=== PATIENT | female | born 1995 | race Hispanic/Latino ===

== ENCOUNTER 2024-10-12 13:26 | Emergency (ER) | payer SELFPAY ==
[~2024-10-12] VITALS: Ht 147.3 cm; Wt 77.1 kg
--- NOTE | 2024-10-12 13:38 | ERN ---
ED Note History of Present Illness Stated Complaint: COUGH Chief Complaint: Cough Time Seen by MD: 13:30 Dictation: PATIENT IS A 29-YEAR-OLD FEMALE HERE WITH COMPLAINTS OF HAVING FLU-LIKE SYMPTOMS TO INCLUDE FEVER CHILLS COUGH WITH GREEN-YELLOW PHLEGM, BODY ACHES AND SINUS CONGESTION FOR THE LAST TWO DAYS. STATES SHE HAS A MILD SORE THROAT WITH PAINFUL SWALLOWING. NO LOSS OF TASTE OR SMELL NO NAUSEA VOMITING NO DIARRHEA NO PRIMARY CARE DOCTOR. SHE HAS BEEN USING [id number]-ENP-FLCREZI NASAL SPRAYS FOR SINUS CONGESTION AT NIGHT. Allergies: Coded Allergies: No Known Drug Allergies (Unverified Allergy, Unknown, 10/12/24) Home Meds Active Scripts Benzonatate (Tessalon Perles) 100 Mg Cap, 200 MG PO TID for cough, #60 CAP 0 Refills Two capsules by mouth every 8 hours as needed for cough. Prov:THEA DEE NP 10/12/24 Azithromycin (Zithromax Tri-Joey) 500 Mg Tablet, 500 MG PO DAILY for 5 Days, #5 TAB Prov:THEA DEE NP 10/12/24 Past Medical History Past Medical History: No Pertinent History Surgical History: RN Note Reviewed/Agreed w/PFSH: Yes Review of System Dictation CONSTITUTIONAL: NEGATIVE EXCEPT FOR HPI FEVER CHILLS HEAD/FACE: NEGATIVE EXCEPT FOR HPI EENT: NEGATIVE EXCEPT FOR HPI CLEAR RHINITIS WITH PAINFUL SWALLOWING AND THROAT PAIN RESPIRATORY: NEGATIVE EXCEPT FOR HPI PRODUCTIVE COUGH YELLOW-GREEN PHLEGM GASTROINTESTINAL/ABDOMINAL: NEGATIVE EXCEPT FOR HPI GENITOURINARY: NEGATIVE EXCEPT FOR HPI MUSCULOSKELETAL: NEGATIVE EXCEPT FOR HPI INTEGUMENTARY: NEGATIVE EXCEPT FOR HPI NEUROLOGICAL/PSYCH: NEGATIVE EXCEPT FOR HPI HEMATOLOGIC/LYMPHATIC: NEGATIVE EXCEPT FOR HPI ALL SYSTEMS NEGATIVE, EXCEPT NOTED ABOVE. 13 POINT REVIEW OF SYSTEMS ASSESSED AND ALL NEGATIVE EXCEPT FOR ABOVE. Initial Vital Sign VS Vital Signs Date Time Temp Pulse Resp B/P (MAP) Pulse Ox O2 Delivery O2 Flow Rate FiO2 10/12/24 13:29 98.2 90 16 114/72 96 Room Air 0 10/12/24 13:32 21 Physical Exam Dictation VITAL SIGNS REVIEWED GENERAL APPEARANCE: ALERT, ORIENTED X 3, MILD ACUTE DISTRESS, WELL DEVELOPED, NOURISHED. HEAD AND FACE: NON-TRAUMATIC. EYES: PERRL, PINK CONJUNCTIVAS, EYELID NO TRAUMA, ANTERIOR CHAMBER WITH ARCUS SENILIS. EARS: PINNAS INTACT AND NO SIGNS OF TRAUMA OR ERYTHEMA EAR CANALS CLEAR AND NO DISCHARGE TM NO ERYTHEMA NOSE: CLEAR DISCHARGE, NO BLEEDING. OROPHARYNX: MOUTH NORMAL, TONGUE PINK, PHARYNX CLEAR, MILD PHARYNGEAL ERYTHEMA, TONSILS NO EXUDATES, NO ABSCESSES NOTED, MUCOUS MEMBRANE MOIST UVULA MIDLINE, VOICE IS CLEAR NECK: SUPPLE, NON-TENDER, NO THYROMEGALY, NO MASSES, NO JVD, NO BRUITS BREAST:DEFERRED CHEST:NO TENDERNESS, NO CREPITUS, NO PARADOXICAL MOVEMENT, NO RETRACTIONS LUNGS:CLEAR, WELL-VENTILATED, SYMMETRIC, NO RALES, NO WHEEZING, NO RHONCHI, NO STRIDOR, GOOD BREATH SOUNDS BILATERALLY HEART: REGULAR RATE, REGULAR RHYTHM, NO MURMUR, NO GALLOPS VASCULAR: NO PERIPHERAL EDEMA, ABDOMEN: SOFT, POSITIVE BOWEL SOUNDS, NONDISTENDED, NO GUARDING, NONTENDER, NO REBOUND, NO MASSES NO HEPATOMEGALY, NO SPLENOMEGALY, NO MADRIGAL'S SIGN, NO HERNIAS. RECTAL: DEFERRED GENITAL: DEFERRED NEUROLOGICAL: NORMAL SPEECH, MOTOR FUNCTION INTACT, SENSORY FUNCTION INTACT MUSCULOSKELETAL: NECK NONTENDER, FULL RANGE OF MOTION, BACK NONTENDER, FULL RANGE OF MOTION, EXTREMITIES: NONTENDER, FULL RANGE OF MOTION SKIN: COLOR PINK, DRY, NO TURGOR, NO RASH, NO LACERATIONS, NO ABRASIONS, NO CONTUSIONS. LYMPHATIC: DEFERRED Results (Laboratory/Radiology) Laboratory/Radiology Laboratory Tests Test 10/12/24 14:05 10/12/24 14:25 Influenza Type A Antigen Negative For Type A Influenza Type B Antigen Negative For Type B SARS-CoV-2 Antigen (Rapid) PRESUMPTIVE NEGATIVE Group A Streptococcus Rapid negative (NEGATIVE) Labs Reviewed?: Yes ED Course ED Course Orders Procedure Category Date Status Time Covid19 (Sars Antigen LAB 10/12/24 Complete Rapid) 13:35 Influenza Type A & B, LAB 10/12/24 Complete Rapid 13:35 Acetaminophen 500mg PHA 10/12/24 Complete Tab (Tylenol 500mg T 14:00 Rapid (Group A Strep) LAB 10/12/24 Complete 14:20 Current Medications Medications (Trade) Dose Ordered Sig/Giselle Route PRN Reason Start Time Stop Time Status Last Admin Dose Admin Acetaminophen (TYLenol 500MG TAB) 1,000 mg ONCE ONCE PO 10/12/24 14:00 10/12/24 14:01 DC 10/12/24 14:12 Vital Signs Date Time Temp Pulse Resp B/P (MAP) Pulse Ox O2 Delivery O2 Flow Rate FiO2 10/12/24 15:34 98.2 84 16 119/74 96 Room Air* 0 21 10/12/24 13:32 98.2 90 16 114/72 96 Room Air* 0 21 10/12/24 13:29 98.2 90 16 114/72 96 Room Air 0 1530/SWABS ARE NEGATIVE FOR FLU COVID AND STREP. PATIENT WILL BE TREATED FOR ACUTE VIRAL URI WITH COUGH. WE WILL BE PRESCRIBED AZITHROMYCIN AND TESSALON TOLD SEE HER PRIMARY CARE DOCTOR FOR FOLLOW UP AND GIVEN A LIST OF DOCTORS ON STAFF Medical Decision Making MDM MEDICAL DECISION-MAKING BASED ON SWABS FOR FLU COVID AND STREP. ALL SWABS NEGATIVE PATIENT WILL BE TREATED FOR ACUTE VIRAL SYNDROME WITH COUGH SHE WILL BE PRESCRIBED TESSALON AND AZITHROMYCIN PROVIDED A LIST OF THE LOCAL PRIMARY CARE DOCTORS. DX & DISP Disposition: Discharge Departure Impression: Primary Impression: Viral URI with cough Additional Impression: Malaise Condition: Stable Scripts Albuterol Sulfate (Ventolin Hfa/Proventil Hfa/Proair Hfa) 90 Mcg Puff 2 PUFF IH Q4H for WHEEZING, #1 INHALER 0 Refills Prov: THEA DEE NP 10/12/24 Benzonatate (Tessalon Perles) 100 Mg Cap 200 MG PO TID for cough, #60 CAP 0 Refills Two capsules by mouth every 8 hours as needed for cough. Prov: THEA DEE NP 10/12/24 Azithromycin (Zithromax Tri-Joey) 500 Mg Tablet 500 MG PO DAILY for 5 Days, #5 TAB Prov: THEA DEE NP 10/12/24 Additional Instructions: Follow-up with primary care provider in 1 to 2 days. Take medications as directed here in the emergency room. Okay to continue home medications unless otherwise discussed during your visit in the emergency room today. Return to your nearest emergency room if symptoms worsen or if there is no improvement. Call 911 if you need immediate assistance. Take Tylenol or Motrin [id number] as needed and if no contraindications are present. Increase oral hydration. A wound culture or urine culture was ordered here in the emergency room department please follow-up with primary care provider and advise them to get repeat ports from our facility. If you had any [place] wrap/splints that were applied here, please do not remove them until you see your primary care or specialty. Take azithromycin as directed until gone. Take Tessalon Perles every 8 hours as needed for cough. Increase your water intake, and take Tylenol [id number] as needed for cough for fever. Follow up with one of the doctors on the list provided you in the next 2-3 days if no improvement Referrals: SELF,REFERRAL (PCP) Time of Disposition: 15:30 I have reviewed the case, and I agree with, Diagnosis and Plan THEA DEE [employer] Oct 12, 2024 13:38
[2024-10-12 14:37] LABS: COVID19 (SARS ANTIGEN RAPID) PRESUMPTIVE NEGATIVE (NEGATIVE); INFLUENZA TYPE A Negative For Type A (NEGATIVE); INFLUENZA TYPE B Negative For Type B (NEGATIVE)
[2024-10-12] MEDS ORDERED: AZIT500T2 PO (15:32)
[2024-10-12] MEDS ORDERED: BENZ-39 PO (15:32)
[2024-10-12 15:34] VITALS: BP 119/74; PULSE 84; RESP 16; TEMP 98.2; O2SAT 96
[2024-10-12] MEDS ORDERED: ALBUHFA IH (15:36)
== END 2024-10-12 15:38 | disposition home or self-care (01) ==
LOC: EDH 13:26
DX: J06.9 Acute upper respiratory infection, unspecified (principal); B97.89 Other viral agents as the cause of diseases classified elsewhere; R53.81 Other malaise; Z20.822 Contact with and (suspected) exposure to COVID-19
CPT/HCPCS: 87426; 87804; 87880; 99283